=== PATIENT | female | born 1975 | race Caucasian/White ===

== ENCOUNTER 2018-12-29 07:37 | Emergency (ER) | payer BC ==
[2018-12-29] MEDS ORDERED: NS(*) 0.9% 1000 ML BAG 1,000 ML IV ONE (08:36)
[2018-12-29 08:48] LABS: PLATELET COUNT, AUTOMATED 471 K/uL (150-450)
--- NOTE | 2018-12-29 08:51 | ER Report ---
History and Physical Time Seen By MD: 08:20 Hx. of Stated Complaint: severe abd pain, nausea and vomitting. red blood in stool since yesterday HPI/ROS CHIEF COMPLAINT: Severe abdominal pain, vomiting HISTORY OF PRESENT ILLNESS: Patient is a 43-year-old female who states she has no past medical history who states that last evening she began having multiple episodes of vomiting with dry heaving and periumbilical abdominal pain. Then around 1:30 in the morning she began having profuse watery diarrhea that then became mixed with bright red blood. She states that the pain and nausea have significantly improved but came to the emergency department due to the severity of her symptoms. Patient does state that she ate Bromaline lettuce sandwich with dressing that was not refrigerated. There are no other ill contacts at home. Patient has not been on any recent antibiotics and there is no recent or significant travel history. She denies fevers or chills. She denies chest pain or shortness of breath. REVIEW OF SYSTEMS: Constitutional: No fever, no chills. Eyes: No discharge. ENT: No sore throat. Cardiovascular: No chest pain, no palpitations. Respiratory: No cough, no shortness of breath. Gastrointestinal: Periumbilical abdominal pain and vomiting. Genitourinary: No hematuria. Musculoskeletal: No back pain. Skin: No rashes. Neurological: No headache. Allergies: Coded Allergies: Sulfa (Sulfonamide Antibiotics) (Verified Allergy, Severe, 12/29/18) Home Meds Active Scripts Furosemide (LASIX) 20 Mg Tablet, 1 TAB PO QDAY, #14 TAB 0 Refills Prov:VIKKI MARTÍNEZ MD 12/29/18 Past Medical/Surgical History Denies any past medical history Constitutional Vital Sign - Last 24 Hours 12/29/18 12/29/18 12/29/18 12/29/18 07:40 08:00 08:30 09:00 Temp 97.3 Pulse 117 114 110 94 Resp 18 B/P (MAP) 117/69 Pulse Ox 93 95 100 99 O2 Delivery Room Air 12/29/18 12/29/18 12/29/18 10:00 10:28 10:30 Pulse 98 95 B/P (MAP) 138/75 (96) 129/87 (101) Pulse Ox 98 98 Physical Exam General/Constitutional: Patient is awake, alert, nontoxic and in no acute respiratory distress. Head: Normocephalic and atraumatic. Eyes: Conjunctival clear, Pupils are equal and reactive to light. Sclera are clear and anicteric. Ears:External canals are clear. Tympanic membranes are clear with normal landmarks and light reflex. Nares: No rhinorrhea or bleeding. Turbinates are pink and moist. Oropharyngeal: Mucous membranes are moist. There is no pharyngeal erythema or exudate. There are no palatal petechiae. Uvula is midline and symmetrical. Neck: Supple, no adenopathy. Cardiovascular: Heart is regular rate and rhythm without audible murmurs, rubs or gallops. Pulmonary: Lungs are clear to auscultation bilaterally. There are no wheezes, rales, or rhonchi. Chest rise is symmetrical Abdomen: Soft, nontender, no guarding or peritoneal signs. Extremities: No gross deformities, No peripheral cyanosis. Able to move all 4 extremities. Neuro: Alert and oriented X3, Skin: No rashes, skin is warm dry and well perfused. Medical Decision Making Data Points Result Diagram: 12/29/18 0752 12/29/18 0752 Laboratory Hematology Test 12/29/18 00:00 12/29/18 07:52 12/29/18 10:27 Red Blood Count 5.89 M/uL (4.17-5.56) Mean Corpuscular Volume 91.6 fL (80.0-96.0) Mean Corpuscular Hemoglobin 28.9 pg (26.0-33.0) Mean Corpuscular Hemoglobin Concent 31.6 g/dL (32.0-36.0) Red Cell Distribution Width 14.3 % (11.5-14.5) Mean Platelet Volume 8.2 fL (7.2-11.1) Neutrophils (%) (Auto) 95.1 % (39.4-72.5) Lymphocytes (%) (Auto) 1.9 % (17.6-49.6) Monocytes (%) (Auto) 2.9 % (4.1-12.4) Eosinophils (%) (Auto) 0.0 % (0.4-6.7) Basophils (%) (Auto) 0.1 % (0.3-1.4) Nucleated RBC Relative Count (auto) 0.0 /100WBC Neutrophils # (Auto) 18.8 K/uL (2.0-7.4) Lymphocytes # (Auto) 0.4 K/uL (1.3-3.6) Monocytes # (Auto) 0.6 K/uL (0.3-1.0) Eosinophils # (Auto) 0.0 K/uL (0.0-0.5) Basophils # (Auto) 0.0 K/uL (0.0-0.1) Nucleated RBC Absolute Count (auto) 0.00 K/uL Prothrombin Time 13.1 seconds (12.0-14.4) Prothromb Time International Ratio 0.99 Activated Partial Thromboplast Time 27 seconds (23-35) Sodium Level 137 mmol/L (137-145) Potassium Level 4.9 mmol/L (3.5-5.0) Chloride Level 103 mmol/L (98-107) Carbon Dioxide Level 13 mmol/L (22-31) Blood Urea Nitrogen 17 mg/dl (7-18) Creatinine 1.60 mg/dl (0.52-1.04) Glomerular Filtration Rate Calc 35.0 Random Glucose 216 mg/dl (75-110) Calcium Level 8.5 mg/dl (8.4-10.2) Total Bilirubin 0.6 mg/dl (0.2-1.3) Aspartate Amino Transf (AST/SGOT) 35 U/L (0-35) Alanine Aminotransferase (ALT/SGPT) < 6 U/L (0-56) Alkaline Phosphatase 92 U/L (0-126) Total Protein 6.8 g/dl (6.3-8.2) Albumin 4.0 g/dl (3.5-5.0) Amylase Level 93 U/L (0-110) Lipase 109 U/L (23-300) Human Chorionic Gonadotropin, Qual Negative (NEGATIVE) Serum Alcohol < 10 mg/dl Helicobacter pylori IgG Antibody Negative (NEGATIVE) Urine Color Yellow Urine Clarity Clear Urine pH 5.0 pH (4.8-9.5) Urine Specific [place] >1.060 Urine Protein Negative mg/dL (NEGATIVE) Urine Glucose (UA) 50 mg/dL (NEGATIVE) Urine Ketones Trace mg/dL (NEGATIVE) Urine Blood Negative (NEGATIVE) Urine Nitrite Negative (NEGATIVE) Urine Bilirubin Negative (NEGATIVE) Urine Urobilinogen Negative mg/dL (0.2-1.9) Urine Leukocyte Esterase Negative (NEGATIVE) Urine RBC None /HPF (0-2/HPF) Urine WBC 6 /HPF (0-5/HPF) Urine Squamous Epithelial Cells Many /LPF (</=FEW) Urine Amorphous Crystals Few /HPF Urine Bacteria Moderate /HPF (NONE-FEW) Urine Hyaline Casts Many /LPF (NONE-FEW) Urine Mucus Few /HPF (NONE-FEW) Chemistry Test 12/29/18 00:00 12/29/18 07:52 12/29/18 10:27 White Blood Count 19.8 k/uL (4.5-11.0) Red Blood Count 5.89 M/uL (4.17-5.56) Hemoglobin 17.0 g/dL (12.0-16.0) Hematocrit 53.9 % (34.0-47.0) Mean Corpuscular Volume 91.6 fL (80.0-96.0) Mean Corpuscular Hemoglobin 28.9 pg (26.0-33.0) Mean Corpuscular Hemoglobin Concent 31.6 g/dL (32.0-36.0) Red Cell Distribution Width 14.3 % (11.5-14.5) Platelet Count 471 K/uL (150-450) Mean Platelet Volume 8.2 fL (7.2-11.1) Neutrophils (%) (Auto) 95.1 % (39.4-72.5) Lymphocytes (%) (Auto) 1.9 % (17.6-49.6) Monocytes (%) (Auto) 2.9 % (4.1-12.4) Eosinophils (%) (Auto) 0.0 % (0.4-6.7) Basophils (%) (Auto) 0.1 % (0.3-1.4) Nucleated RBC Relative Count (auto) 0.0 /100WBC Neutrophils # (Auto) 18.8 K/uL (2.0-7.4) Lymphocytes # (Auto) 0.4 K/uL (1.3-3.6) Monocytes # (Auto) 0.6 K/uL (0.3-1.0) Eosinophils # (Auto) 0.0 K/uL (0.0-0.5) Basophils # (Auto) 0.0 K/uL (0.0-0.1) Nucleated RBC Absolute Count (auto) 0.00 K/uL Prothrombin Time 13.1 seconds (12.0-14.4) Prothromb Time International Ratio 0.99 Activated Partial Thromboplast Time 27 seconds (23-35) Glomerular Filtration Rate Calc 35.0 Calcium Level 8.5 mg/dl (8.4-10.2) Total Bilirubin 0.6 mg/dl (0.2-1.3) Aspartate Amino Transf (AST/SGOT) 35 U/L (0-35) Alanine Aminotransferase (ALT/SGPT) < 6 U/L (0-56) Alkaline Phosphatase 92 U/L (0-126) Total Protein 6.8 g/dl (6.3-8.2) Albumin 4.0 g/dl (3.5-5.0) Amylase Level 93 U/L (0-110) Lipase 109 U/L (23-300) Human Chorionic Gonadotropin, Qual Negative (NEGATIVE) Serum Alcohol < 10 mg/dl Helicobacter pylori IgG Antibody Negative (NEGATIVE) Urine Color Yellow Urine Clarity Clear Urine pH 5.0 pH (4.8-9.5) Urine Specific [place] >1.060 Urine Protein Negative mg/dL (NEGATIVE) Urine Glucose (UA) 50 mg/dL (NEGATIVE) Urine Ketones Trace mg/dL (NEGATIVE) Urine Blood Negative (NEGATIVE) Urine Nitrite Negative (NEGATIVE) Urine Bilirubin Negative (NEGATIVE) Urine Urobilinogen Negative mg/dL (0.2-1.9) Urine Leukocyte Esterase Negative (NEGATIVE) Urine RBC None /HPF (0-2/HPF) Urine WBC 6 /HPF (0-5/HPF) Urine Squamous Epithelial Cells Many /LPF (</=FEW) Urine Amorphous Crystals Few /HPF Urine Bacteria Moderate /HPF (NONE-FEW) Urine Hyaline Casts Many /LPF (NONE-FEW) Urine Mucus Few /HPF (NONE-FEW) Coagulation Test 12/29/18 07:52 Prothrombin Time 13.1 seconds Prothromb Time International Ratio 0.99 Activated Partial Thromboplast Time 27 seconds Toxicology Test 12/29/18 07:52 Serum Alcohol < 10 mg/dl Urinalysis Test 12/29/18 10:27 Urine Color Yellow Urine Clarity Clear Urine pH 5.0 pH (4.8-9.5) Urine Specific [place] >1.060 Urine Protein Negative mg/dL (NEGATIVE) Urine Glucose (UA) 50 mg/dL (NEGATIVE) Urine Ketones Trace mg/dL (NEGATIVE) Urine Blood Negative (NEGATIVE) Urine Nitrite Negative (NEGATIVE) Urine Bilirubin Negative (NEGATIVE) Urine Urobilinogen Negative mg/dL (0.2-1.9) Urine Leukocyte Esterase Negative (NEGATIVE) Urine RBC None /HPF (0-2/HPF) Urine WBC 6 /HPF (0-5/HPF) Urine Squamous Epithelial Cells Many /LPF (</=FEW) Urine Amorphous Crystals Few /HPF Urine Bacteria Moderate /HPF (NONE-FEW) Urine Hyaline Casts Many /LPF (NONE-FEW) Urine Mucus Few /HPF (NONE-FEW) EKG/Imaging Imaging FACILITY: [facility] PATIENT NAME: Doreen Echeverria : 1975 MR: [id number] V: [id number] EXAM DATE: [id number] ORDERING PHYSICIAN: VIKKI MARTÍNEZ TECHNOLOGIST: Location: [facility] - [place] Patient: Doreen Echeverria : 1975 Visit/Account:[id number] Date of Sevice: 12/29/2018 CT ABDOMEN PELVIS W/ CON COMPARISONS: None. ADDITIONAL PERTINENT HISTORY: Abdominal pain with vomiting plus diarrhea with b lood. TECHNIQUE: Multiple axial images were obtained from the lung bases through the lesser trochanters before and after the IV administration of IV contrast. One of the following dose optimization techniques was utilized in the performance of this exam: Automated exposure control; adjustment of the mA and/or kV according to the patient's size; or use of an iterative reconstruction technique. Specific details can be referenced in the facility's radiology CT exam operational policy. CONTRAST: 75 ml of Isovue-370 FINDINGS: Lung bases: Negative. Free air and free fluid: Large amount of ascites is noted within the abdomen and pelvis. No free air noted. Liver: Negative. Spleen: Negative. Kidneys, ureters and urinary bladder: Negative. Adrenal glands: Negative. Pancreas: Negative. Gallbladder: Minimally distended otherwise normal. No gallbladder wall thickening. Bowel and mesentery: Mild enhancement of the wall of the small bowel which may be reactive to the underlying ascites versus a developing gastroenteritis. Mildly distended loops of fluid-filled bowel in the right mid abdomen with no evidence of obstruction. The colon is decompressed.. Pelvic contents: Negative Lymph node assessment: Negative. Retroperitoneum: Negative. Abdominal vasculature: Negative. Surrounding soft tissues: Negative. Osseous structures: Remote healed fracture involving the right inferior pubic ramus. Bony deformity involving the right sacral ala with fusion of the right SI joint which also may be posttraumatic in nature. Minimal spondylitic change at the thoracolumbar junction. IMPRESSION: 1. Underlying ascites of uncertain etiology. This may be related to underlying acute hepatic failure. 2. Mildly enhancing small bowel loops which can be seen in patients with gastroenteritis versus reactive related to the ascites. 3. No other acute intra-abdominal or intrapelvic process. A paracentesis may be of further benefit to further evaluate the ascites. Results were discussed with VIKKI MARTÍNEZ at 12/29/2018 10:19 AM. Report Dictated By: Shay Martel MD at 12/29/2018 9:55 AM Report E-Signed By: Shay Martel MD at 12/29/2018 10:19 AM WSN:[id number] ED Course/Re-evaluation ED Course 12/29/2018 8:50:24 am after my patient interview the patient's came out of the treatment room and conversed with me stating that the patient is a fairly heavy drinker. He states that she drinks at minimum and equal in a sixpack of beer or at least 6 drinks per day and this is done daily. Patient herself does not feel that she has a problem with alcohol. Plan at this time will be abdominal workup including CT scan with IV contrast. We'll also add a blood alcohol level. Also check coagulation panel to better determine liver function. 12/29/2018 12:04:05 pm patient found to have ascites on CT scan without evidence of cirrhosis to the liver or other abdominal or pelvic pathology. There were some dilated in wall thickened areas of small bowel that would be consistent with either a gastroenteritis or potentially irritation from ascites. Interestingly the patient has completely normal liver panel including albumin, total protein, bilirubin and transaminases. It seems unlikely that this is the source of the patient's ascites. This does raise the question of potential malignancy or other source of ascites. Patient was sent over to interventional radiology for a paracentesis however to perform the procedure states that she had no good windows on ultrasound to attempt the procedure safely at this time. This was relayed to the patient. I explained to start the patient on Lasix over the next week and I have already spoken to the patient's primary care provider whom she knows that she will try to follow up within the next week. [place] counseled to abstain from any alcohol and offered detox and she felt that she was going through bad withdrawal symptoms. Patient prefers to be discharged home at this time stands the importance of following up with primary care provider. Decision to Disposition Date: Dec 29, 2018 Decision to Disposition Time: 12:05 Depart Departure Latest Vital Signs Vital Signs Date Time Temp Pulse Resp B/P (MAP) Pulse Ox O2 Delivery O2 Flow Rate FiO2 12/29/18 10:30 95 129/87 (101) 98 12/29/18 07:40 97.3 18 Room Air Impression: Primary Impression: Vomiting Additional Impressions: Diarrhea Ascites Condition: Improved Disposition: HOME OR SELF-CARE Referrals: VIVI CAAL PA-C (PCP) make an appointment in the next week to follow up for the ascitis New Scripts Furosemide (LASIX) 20 Mg Tablet 1 TAB PO QDAY, #14 TAB 0 Refills Prov: VIKKI MARTÍNEZ MD 12/29/18 Departure Forms: Medications Reconciliation, Patient Portal Information, ER Transition Record Patient Instructions: Acute Diarrhea (ED), Acute Nausea and Vomiting (GEN), Ascites (DC) Additional Instructions: Call Vivi Caal to make an appointment to follow up in the next 7 days for urinary ascites. She may refer you to a specialist and perhaps interventional radiologist either in [place] or [facility] [place] who may feel more comfortable performing the abdominal paracentesis. Abstain from alcohol and avoid Tylenol. Return to the emergency department if any time he develop fever or worsening symptoms. Problem Qualifiers Primary Impression: Vomiting Vomiting type: unspecified Vomiting Intractability: non-intractable Nausea presence: with nausea Qualified Codes: R11.2 - Nausea with vomiting, unspecified Additional Impressions: Diarrhea Diarrhea type: unspecified type Qualified Codes: R19.7 - Diarrhea, unspecified Ascites Ascites type: other type Qualified Codes: R18.8 - Other ascites VIKKI MARTÍNEZ MD Dec 29, 2018 08:51
[2018-12-29 08:54] LABS: INR 0.99
[2018-12-29] MEDS ORDERED: IOPAMIDOL 76% 150 ML INFUS BTL 150 ML ONE (09:33)
--- NOTE | 2018-12-29 10:24 | RADIOLOGY IMAGING REPORT ---
FACILITY: [facility] - [place] PATIENT NAME: Doreen Echeverria : 1975 MR: [id number] V: [id number] EXAM DATE: ORDERING PHYSICIAN: VIKKI MARTÍNEZ TECHNOLOGIST: Location: [facility] [place] Patient: Doreen Echeverria : 1975 Visit/Account:[id number] Date of Sevice: 12/29/2018 CT ABDOMEN PELVIS W/ CON COMPARISONS: None. ADDITIONAL PERTINENT HISTORY: Abdominal pain with vomiting plus diarrhea with blood. TECHNIQUE: Multiple axial images were obtained from the lung bases through the lesser trochanters bef ore and after the IV administration of IV contrast. One of the following dose optimization technique s was utilized in the performance of this exam: Automated exposure control; adjustment of the mA and/ or kV according to the patient's size; or use of an iterative reconstruction technique. Specific de tails can be referenced in the facility's radiology CT exam operational policy. CONTRAST: 75 ml of Isovue-370 FINDINGS: Lung bases: Negative. Free air and free fluid: Large amount of ascites is noted within the abdomen and pelvis. No free air noted. Liver: Negative. Spleen: Negative. Kidneys, ureters and urinary bladder: Negative. Adrenal glands: Negative. Pancreas: Negative. Gallbladder: Minimally distended otherwise normal. No gallbladder wall thickening. Bowel and mesentery: Mild enhancement of the wall of the small bowel which may be reactive to the und erlying ascites versus a developing gastroenteritis. Mildly distended loops of fluid-filled bowel in the right mid abdomen with no evidence of obstruction. The colon is decompressed.. Pelvic contents: Negative Lymph node assessment: Negative. Retroperitoneum: Negative. Abdominal vasculature: Negative. Surrounding soft tissues: Negative. Osseous structures: Remote healed fracture involving the right inferior pubic ramus. Bony deformity i nvolving the right sacral ala with fusion of the right SI joint which also may be posttraumatic in na ture. Minimal spondylitic change at the thoracolumbar junction. IMPRESSION: 1. Underlying ascites of uncertain etiology. This may be related to underlying acute hepatic failure. 2. Mildly enhancing small bowel loops which can be seen in patients with gastroenteritis versus react ramesh related to the ascites. 3. No other acute intra-abdominal or intrapelvic process. A paracentesis may be of further benefit to further evaluate the ascites. Results were discussed with VIKKI MARTÍNEZ at 12/29/2018 10:19 AM. Report Dictated By: Shay Martel MD at 12/29/2018 9:55 AM Report E-Signed By: Shay Martel MD at 12/29/2018 10:19 AM WSN:[id number]
[2018-12-29 10:30] VITALS: BP 129/87
[2018-12-29] MEDS ORDERED: FURO20TA19 PO (12:09)
--- NOTE | 2018-12-29 13:08 | RADIOLOGY IMAGING REPORT ---
[place] [facility] [place] NAME: Doreen Echeverria : 1975 MR: [id number] V: [id number] EXAM DATE: ORDERING PHYSICIAN: VIKKI MARTÍNEZ TECHNOLOGIST: Location: [facility] - [place] Patient: Doreen Echeverria : 1975 Visit/Account:[id number] Date of Sevice: 12/29/2018 Exam type: PARACENTESIS History: ascitis Comparison: CT of abdomen pelvis performed today. Findings: There was a moderate amount of abdominal and pelvic ascites however a safe window to allow insertion of the paracentesis needle/catheter could not be identified due to numerous adjacent floating loops o f bowel throughout the abdomen and pelvis. IMPRESSION: 1. As above Report Dictated By: Emely Granado MD at 12/29/2018 1:02 PM Report E-Signed By: Emely Granado MD at 12/29/2018 1:04 PM WSN:[email or web address]
== END 2018-12-29 12:24 | disposition home or self-care (01) ==
LOC: ER 08:41
DX: R11.10 Vomiting, unspecified (principal); R19.7 Diarrhea, unspecified; R18.8 Other ascites
CPT/HCPCS: 49083; 74177; 80320; 81001; 82150; 82977; 83690; 84703; 85025; 85610; 85730; 86677; 96360; 99284; A7048; J7030; Q9967; 82040; 82247; 82310; 82374; 82435; 82565; 82947; 84075; 84132; 84155; 84295; 84450; 84460; 84520

== ENCOUNTER → 2019-01-20 | Outpatient (CLI) | payer BC ==
[~2019-01-20] MED LIST: FURO20TA19 PO
--- NOTE | 2019-01-20 14:02 | RADIOLOGY IMAGING REPORT ---
FACILITY: [facility] - [place] PATIENT NAME: Doreen Echeverria : 1975 MR: [id number] V: [id number] EXAM DATE: ORDERING PHYSICIAN: ZA KNOWLES TECHNOLOGIST: Location: [facility] - [place] Patient: Doreen Echeverria : 1975 Visit/Account:[id number] Date of Sevice: 01/20/2019 Exam type: CHEST PA LAT History: History of ascites Comparison: CT abdomen pelvis December 29, 2018. Findings: The lungs are free of acute effusions, infiltrates or edema. The cardiac size is normal in size. Th e trachea is in midline. There is a gentle dextroconvex scoliosis of the thoracic spine. IMPRESSION: 1. No acute cardiopulmonary process seen Report Dictated By: Emely Granado MD at 01/20/2019 1:56 PM Report E-Signed By: Emely Granado MD at 01/20/2019 1:58 PM WSN:[email or web address]
== END ==
LOC: RAD 00:58
PROVIDERS: ATTEND Family Medicine
DX: R18.8 Other ascites (principal)
CPT/HCPCS: 71046; 93306